=== PATIENT | female | born 1925 | race Caucasian/White ===

== ENCOUNTER 2016-11-04 17:51 | Inpatient (IN) | payer MEDICARE, MEDICAID ==
[~2016-11-04] VITALS: Ht 157.5 cm; Wt 75.5 kg
[~2016-11-04 17:51] MED LIST: ALBU2.5V4 INHALATION; ALBU8.5H2 IH; AMLO5TAB2 PO; ATOR20TA65 PO; ATRINH INH; HYDR25TA4 PO; INSLIS SUBQ; INSU100I13 SUBQ; LISI40TA PO; METF500T7 PO; MIRT15TA6 PO; OMEP20CA11 PO; TAMS0.4C98 PO; TRAM50TA2 PO; WARF3TAB7 PO; WARF4TAB6 PO
[2016-11-04 17:53] VITALS: BP 139/76; PULSE 95; RESP 20; O2SAT 95
--- NOTE | 2016-11-04 18:09 | ED.REPORT ---
HPI-Dyspnea / Wheezing Date of Service Nov 04, 2016 ED Provider: Kim Lorenzana MD 89 y/o female on Warfarin with a hx of [place], hypertension, diabetes, pneumonia, hyperlipidemia, TIA and multiple other medical concerns presents to the ED complaining of SOB, onset two to three days ago. Associated symptoms include cough, wheezing, back pain and chest pain, though she is not experiencing chest pain in ED. She denies fever, chills and lower extremity edema. The pt is on inhalers at baseline, but these treatments have not been helping in the last two days. She has been on Macrobid for three days for a UTI, but the pt's family does not believe that these antibiotics are helping. Nursing Notes Stated Complaint: WEAK,COUGHING AND WHEEZING Chief Complaint: Respiratory Distress Nursing Notes Reviewed: Yes Allergies: Coded Allergies: No Known Allergies (Verified Allergy, Unknown, 07/17/16) Scheduled Atorvastatin Calcium (Atorvastatin Calcium) 20 Mg Tablet 20 MG PO HS Budesonide/Formoterol 160-4.5 mcg Inh (Symbicort 160-4.5 mcg Inh) 120 Puff Inhaler 1 PUFF INHALATION BID Hydrochlorothiazide (Hydrochlorothiazide) 25 Mg Tablet 25 MG PO QAM Insulin Human Lispro (HumaLOG U100 Insulin Vial) 100 Unit/Ml Unit 1-12 UNIT SUBQ TIDWM use per sliding scale Lisinopril (Lisinopril) 40 Mg Tablet 40 MG PO QAM Metformin ER (Metformin ER) 500 Mg Tablet 500 MG PO DAILYWD Mirtazapine (Mirtazapine) 15 Mg Tablet 7.5 MG PO HS Nitrofurantoin Monohyd/M-Cryst (MacroBid) 100 Mg Capsule 100 MG PO BID Omeprazole (Omeprazole) 20 Mg Capsule.dr 20 MG PO QAM Tamsulosin ER (Tamsulosin ER) 0.4 Mg Cap.er.24h 0.4 MG PO HS Tramadol (Tramadol) 50 Mg Tablet 50 MG PO QAM Warfarin Sodium (Warfarin Sodium) 3 Mg Tablet 3 MG PO /// 4 MG FRI/FRI/FRI, 3 MG ALL OTHER DAYS Warfarin Sodium (Warfarin Sodium) 4 Mg Tablet 4 MG PO FRI/FRI/FRI 4 MG MON/FRI/FRI, 3 MG ALL OTHER DAYS Scheduled PRN Albuterol HFA (Proair HFA) 8.5 Gm Hfa.aer.ad 2 PUFFS IH Q4 PRN PRN For Shortness of Breath Albuterol Neb Soln (Albuterol Neb Soln) 2.5 Mg/3 Ml Vial.neb 2.5 MG INHALATION Q4H PRN PRN For Shortness of Breath Ipratropium [place] (Atrovent HFA) 200 Puff/12.9 Gm Inhaler 2 PUFF INH QID PRN PRN For Wheezing General Time Seen by MD: 18:05 Chief Complaint Shortness of breath Hx Obtained From: Patient, Other family... Sudden in Onset?: No Onset Occurred: 3 days ago Symptom Duration: Since onset Recent Healthcare: Recent doctor visit, Recent hospitalization Similar Sx Previous: Yes Past Medical History Past Medical History Notes: PCP: MIKHAIL Sharma Code status 11/04/2016: full code Past Medical History Admit for cardiac arrest due to pulmonary emboli February 2016, discharged on warfarin h/o Pneumonia (3x with hospitalization in 2014) COPD asthma Hypertension Diabetes mellitus Asthma (severe) CKD, stage 2 Hyperlipidemia TIA Past Surgical History Patient has midline abdominal scar, family debate whether or not this is cholecystectomy, appendectomy or some other procedure Reports: Cataract surgery, Cholecystectomy Smoking History Never Smoker 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 Other Social History: Good social support, Local resident Ambulatory Status Independent Review of Systems Review of Systems Note: denies lower extremity edema Constitutional: Denies: Chills, Fever Respiratory: Reports: Non-productive cough, Shortness of breath, Wheezing Cardiovascular: Reports: Chest pain Musculoskeletal: Reports: Back pain, Denies: Extremity swelling Complete sys rev & neg: except as marked. Physical Exam Initial Vital Signs Vital Signs (First) Date Time Temp Pulse Resp B/P Pulse Ox O2 Delivery O2 Flow Rate FiO2 11/04/16 17:53 36.8 95 20 139/76 95 Room Air Initial VS: Reviewed General/Constitutional: Awake, Alert Neck: Atraumatic, Supple, Full range of motion Respiratory / Chest: Atraumatic, Breath sounds = bilat Decreased diffuse rhonchi with expiratory wheezes. Cardiovascular: Heart rate NL, Regular rhythm, Heart sounds NL ENT: Atraumatic, Airway patent, Mucous membranes moist Abdomen: Atraumatic, Soft, Non-tender Back: Atraumatic, Full range of motion Lower Extremity / Pelvis / MS: Atraumatic, Full range of motion, No edema Skin: Atraumatic, Color NL, No rash, Warm, Dry Neurologic: Oriented X3, Speech NL, No motor deficits, No sensory deficits Head / Eyes: Atraumatic, Normocephalic, PERRL, EOMI Upper Extremity / MS: Atraumatic, Full range of motion Psychiatric: Affect NL, Mood NL Interpretation & Diagnostics Lab Results Interpretation Result Diagram: 11/04/16 1845 11/04/16 1845 Test 11/04/16 18:45 11/04/16 19:28 White Blood Count 10.7th/mm3 (3.8-10.1) Red Blood Count 3.49mil/mm3 (3.90-5.20) Hemoglobin 10.0g/dL (12.0-15.6) Hematocrit 31.2% (35.0-46.0) Mean Corpuscular Volume 89.4fL (81-100) Mean Corpuscular Hemoglobin 28.7pg (27.0-35.0) Mean Corpuscular Hemoglobin Concent 32.1% (32.0-37.0) Red Cell Distribution Width 13.4% (12.3-15.4) Platelet Count 233bil/L (150-400) Neutrophils (%) (Auto) 59.3% (40-74) Lymphocytes (%) (Auto) 31.2% (14-46) Monocytes (%) (Auto) 8.1% (4-12) Eosinophils (%) (Auto) 0.9% (0-5) Basophils (%) (Auto) 0.3% (0-3) Prothrombin Time 36.8sec (8.1-12.5) Prothromb Time International Ratio 3.36ratio Activated Partial Thromboplast Time 44.0sec (22.8-33.0) Sodium Level 129mEq/L (134-144) Potassium Level 3.9mEq/L (3.5-5.2) Chloride Level 91mEq/L (97-108) Carbon Dioxide Level 22mmol/L (18-29) Blood Urea Nitrogen 31mg/dL (8-27) Creatinine 1.41mg/dL (0.57-1.00) Estimat Glomerular Filtration Rate 50mL/min (>59) Glucose Level 189mg/dL (60-99) Calcium Level 8.9mg/dL (8.5-10.1) Magnesium Level 1.4mg/dL (1.6-2.6) Total Bilirubin 0.3mg/dL (0.0-1.2) Aspartate Amino Transf (AST/SGOT) 12U/L (0-50) Alanine Aminotransferase (ALT/SGPT) 10U/L (0-32) Alkaline Phosphatase 90U/L (25-165) Troponin T < 0.010ug/L (0.0-0.011) Pro-B-Type Natriuretic Peptide 790.7pg/mL (0-738) Total Protein 7.4g/dL (6.4-8.4) Albumin 3.6g/dL (3.4-5.0) Procalcitonin 0.09ng/mL (0.00-0.08) Hold Diaz Top Tube Received (Received) Urine Color Yellow (YELLOW) Urine Appearance Clear (CLEAR,HAZY) Urine pH 5.5 (5.0-8.0) Urine Specific [place] 1.025 (1.003-1.035) Urine Protein Tracemg/dL (NEG,TRACE) Urine Glucose (UA) Negativemg/dL (NEGATIVE) Urine Ketones Negativemg/dL (NEGATIVE) Urine Occult Blood Small (NEGATIVE) Urine Nitrite Negative (NEGATIVE) Urine Bilirubin Negative (NEGATIVE) Urine Urobilinogen Normalmg/dL (NORMAL) Urine Leukocyte Esterase Moderate (NEGATIVE) Urine RBC 0-2/hpf (0-2) Urine WBC 0-5/hpf (0-5) Urine Epithelial Cells Few/hpf (NONE-MOD) Urine Crystals None seen (NONE SEEN) Urine Bacteria Few/hpf (NONE-FEW) Urine Hyaline Casts None/lpf (NONE) Urine Granular Casts None seen (NONE SEEN) Urine Waxy Casts None seen (NONE SEEN) Urine Red Blood Cell Casts None seen (NONE SEEN) Urine White Blood Cell Casts None seen (NONE SEEN) Urine Mucus None seen (None Seen) Urine Trichomonas None seen (NONE SEEN) Urine Yeast None (NONE SEEN) Urinalysis Comment None Urine Culture Reflexed Indicated ECG Interpretation ECG Interpretation: Normal sinus. Rate [address] elevation. T wave inversion aVR. Q wave in V3. Unchanged from prior (dated 07/17/16) Time: 18:24 Interpreted by: ED physician X-Ray Chest Interpretation Chest Xray Interpretation: IMPRESSION: 1. Increased patchy left basilar opacities consistent with atelectasis or consolidation/pneumonia. 2. Moderate size hiatal hernia. Dictated by: Marlon Del Castillo M.D. on 11/04/2016 at 19:37 Approved by: Marlon Del Castillo M.D. on 11/04/2016 at 19:38 View: Portable, 1 view Interpretation / Wet Read by: Interpret - Radiologist CT Chest Interpretation Re-Eval/Medical Decision Med Decision/Clinical Course 89-year-old female with extensive past medical history brought in by her family for shortness of breath. Differential diagnosis includes but is not limited to pneumonia versus COPD exacerbation versus electrolyte abnormality versus urinary tract infection. Patient does have evidence of pneumonia on chest x- ray. She has mild leukocytosis, along with baseline anemia on CBC. CMP shows mild hyponatremia, also baseline. Her creatinine is elevated at 1.4 compared to her baseline of 0.7. Her pro calcitonin is elevated. Additionally, she was wheezing and decreased on arrival which improved dramatically after 2 breathing treatments. She has been accepted by the hospitalist Dr. Scott for fluid hydration, Rocephin, azithromycin for pneumonia, and continued neb treatments for COPD exacerbation. She and family are aware and amenable to admission. I discussed her CODE STATUS, however, her family continues to have her remain full code, but they will discuss whether or not to make her DO NOT RESUSCITATE per her wishes. Source of Hx: Old records Re-Evaluation/Progress #1: Time of Eval: 19:04 Patient Status: Condition improved Re-Evaluation/Progress Note: Pt is moving air better following initial breathing treatment, but still has diffuse expiratory wheeze. Albuterol is ordered. Re-Evaluation/Progress #2: Time of Eval: 19:44 Patient Status: Condition improved Re-Evaluation/Progress Note: Pt rechecked, who is stable. Diagnosis and the need for admission are discussed. The pt understands and agrees with the plan. All questions are addressed at this time. Consultation : Referral / Consult Name: Penny Scott DO Consulted With: Hospitalist Call Returned at: 19:51 Sales Service Professional: Agrees with eval, Agrees with plan, Accepts admit Note: Spoke with Dr. Scott, hospitalist, regarding pt's case. Dr. Scott agrees with the evaluation and agrees to admit the pt. Counseled Regarding: Diagnosis, Lab results, Need for admission Discharge & Departure Impression: Primary Impression: Acute kidney injury Additional Impression: Pneumonia Pneumonia type: due to unspecified organism Laterality: left Lung location : lower lobe of lung Qualified Code: J18.1 - Lobar pneumonia, unspecified organism Disposition: ADMITTED TO HOSPITAL Discharge Condition All VS Reviewed: Yes Condition: Stable Referrals: Tri Sharma (PCP) Scribe Attestation Portion of this note were transcribed by Larry Menjivar and Temitope Mcintyre. I, Dr. Lorenzana, personally performed the history,physical exam and medical decision- making; I reviewed and confirmed the accuracy of the information in transcribed note. Signed by Yong Gonzalez. 11/04/2016 and 2017. copies to: Tri Sharma Rebecca A MD Nov 04, 2016 18:09 Larry Menjivar Nov 04, 2016 18:16 TEMITOPE MCINTYRE Nov 04, 2016 19:04
[2016-11-04] MEDS ORDERED: Albuterol-Ipratropium 3 mL Inhalation Solution NEB ONE (18:15)
[2016-11-04 18:27] VITALS: PULSE 90; RESP 18; O2SAT 96
[2016-11-04 18:58] LABS: BASOPHILS % (AUTO) 0.3 % (0-3); EOSINOPHILS % (AUTO) 0.9 % (0-5); MONOCYTES % (AUTO) 8.1 % (4-12); Mean Corpuscular Hemoglobin 28.7 pg (27.0-35.0); Mean Corpuscular Volume 89.4 fL (81-100); NEUTROPHILS % (AUTO) 59.3 % (40-74); Platelet Count 233 bil/L (150-400)
[2016-11-04] MEDS ORDERED: Albuterol 2.5 mg/3 mL Inhalation Solution NEB ONE (19:05)
[2016-11-04 19:16] LABS: INR 3.36 ratio
[2016-11-04 19:28] VITALS: PULSE 87; RESP 18; O2SAT 98
[2016-11-04 19:32] LABS: Magnesium 1.4 mg/dL (1.6-2.6); TROPONIN T < 0.010 ug/L (0.0-0.011)
[2016-11-04 19:39] LABS: APPEARANCE,URINE CLEAR (CLEAR,HAZY); COLOR,URINE YELLOW (YELLOW)
[2016-11-04 19:40] LABS: OCCULT BLOOD,URINE SMALL (NEGATIVE); PH,URINE 5.5 (5.0-8.0); UROBILINOGEN,URINE NORMAL (NORMAL)
--- NOTE | 2016-11-04 19:40 | DRSVH ---
PROCEDURE: X-RAY CHEST ONE VIEW, PORTABLE ([id number]) INDICATIONS: chest pain TECHNIQUE: One view of the chest was acquired. COMPARISON: [facility], CR, XR CHEST 2VW, 08/01/2016, 12:18. FINDINGS: Surgical changes and devices: None. Lungs and pleura: No pleural effusions or pneumothorax. There increased patchy left basilar opaciti es. Mediastinum: There is a moderate-sized hiatal hernia. Heart size is normal. Bones and chest wall: No suspicious bony lesions. Overlying soft tissues appear unremarkable. IMPRESSION: 1. Increased patchy left basilar opacities consistent with atelectasis or consolidation/pneumonia. 2. Moderate size hiatal hernia. Dictated by: Marlon Del Castillo M.D. on 11/04/2016 at 19:37 Approved by: Marlon Del Castillo M.D. on 11/04/2016 at 19:38
[2016-11-04] MEDS ORDERED: cefTRIAXone Inj 1,000 MG in Dextrose 5% Minibag Plus 50 ML IV ONE (19:45)
[2016-11-04] MEDS ORDERED: 0.9% Sodium Chloride 250 ML IV ONE (19:45)
--- NOTE | 2016-11-04 20:11 | PCM.HPMED ---
Subjective Date of Service Nov 04, 2016 Primary Provider: Admitting Physician: Penny Scott DO Primary Care Physician: Tri Sharma Attending Physician: Penny Scott DO Admit Status: From the Emergency Department Chief Complaint: Shortness of breath History of Present Illness: 89 y/o Yi-speaking female with a history of asthma, DM type 2, hypertension , recurrent UTIs, and [facility] admission in February of 2016 following a cardiac arrest secondary to PE who presented today with the complaint of worsening shortness of breath for the past 2 days. Associated symptoms include subjective fevers, chills, diaphoresis, nonproductive cough, wheezing, fatigue, generalized weakness, headache, mild nausea, and back pain. Patient is accompanied by her daughter and caregiver, Dinorah who is Slovak speaking and able to provide additional history. Per the patient and her daughter she endorses recurrent UTIs and recently started on Macrobid (11/01/16) by her PCP for active UTI. Additionally, daughter reports asthma has been well-controlled on current therapy. Patient denies ever being a smoker and notes a long- standing history of asthma. No other family members or caregivers have been sick and both patient and her daughter deny sick contacts. Today patient endorses ongoing dysuria and denies hematuria or increased urinary frequency, although this is somewhat difficult to asses as the patient is incontinent of urine. Per chart review, patient was seen by Urology in July of this year for bladder retention and passed a voiding trial. Recommendations at that time were continued followup with PCP and possible cystoscopy in the future. Patient denies chest pain, congestion, hemoptysis, abdominal pain, vomiting, diarrhea or lower extremity swelling. Of note the patient's daughter notes an increase in the patient's left hand tremor. She states that she brought this up with the patient's PCP last week but states that it was not addressed. In the ED, vitals: temp36.8, BP 139/76, pulse 95, RR 20, 95% on room air. Labs : wbc 10.7, H/H 10.0/31.2, sodium 129, potassium 3.9, chloride 91, bicarb 22, BUN 31, creatinine 1.41 (Baseline creatinine appears to be 0.8-1.0), serum glucose 189, troponnin negative x1, pro BNP 790.7 (proBNP on 03/02/16 was 795.6). PT/INR 36.8/3.36. UA with moderate leukocytes esterase, negative nitrite, few bacteria and occult blood. ECG showing NSR with rate 89, no ST elevation and unchanged from prior (07/17/16). Chest xray showing an increase in left basilar opacities consistent with atelectasis or consolidation/pneumonia, moderate sized hiatal hernia. She received- 500mg of oral azithromycin, 1g IV ceftriaxone, 324mg oral aspirin , and nebulizer treatments. Review of Systems: A comprehensive review of systems was conducted with the patient and found to be negative except as above in the History of Present Illness. Allergies Coded Allergies: No Known Allergies (Verified Allergy, Unknown, 07/17/16) Home Medications Mirtazapine 7.5 MG PO HS Atorvastatin Calcium 20 MG PO HS Metformin ER 500 MG PO QPM Lisinopril 20 MG PO QAM Omeprazole 20 MG PO QAM Hydrochlorothiazide 25 MG PO QAM Tamsulosin 0.4 MG PO DAILY Warfarin Sodium (Warfarin Sodium) 3 Mg Tablet 3 MG PO ,,,, Warfarin Sodium (Warfarin Sodium) 4 Mg Tablet 4 MG PO ,Fri Tramadol 50 MG PO DAILY PRN For Pain Albuterol HFA 8.5 Gm; 2 PUFFS IH Q4 PRN For Shortness of Breath Albuterol Neb Soln 2.5 MG INHALATION Q4H PRN For Shortness of Breath Ipratropium [place] 12.9 Gm Inhaler 2 PUFF INH QID PROAIR AND ATROVENT Insulin Glargine 5 UNITS SUBQ HS Insulin Human Lispro 100 Unit/Ml Unit UNIT SUBQ BID use per sliding scale PMH Admit for cardiac arrest due to pulmonary emboli February 2016, discharged on warfarin h/o Pneumonia (3x with hospitalization in 2014) COPD/asthma Hypertension Diabetes mellitus type 2, insulin using CKD, stage 2 Hyperlipidemia TIA Surgical History Cholecystectomy, appendectomy Cataract surgery Cholecystectomy (patient not sure but there is a midline abdominal scar) Family History Diabetes, brother of heart attack, Social History Hx Alcohol Use: No Hx Substance Use: No Hx Tobacco Use: No Smoking Status: Never Smoker Living Arrangement: with Family Exam Vital Signs Vital Sign - Last Date Time Temp Pulse Resp B/P Pulse Ox O2 Delivery O2 Flow Rate FiO2 11/04/16 19:28 87 18 98 Room Air 11/04/16 17:53 36.8 139/76 Exam Gen: Age-appropriate, elderly female lying in bed, appears comfortable and in no acute distress, breathing comfortably on room air. HEENT: NCAT, PERRLA, moist conjunctivae, and no lid lag. Oropharynx appears nml with moist mucosa. Neck: Supple, nontender, no JVD, bruits or lymphadenopathy. Cardiac: RRR with no murmurs, rubs, or gallops appreciated Lungs: Normal respiratory effort, mild diffuse wheezing, crackles noted at the left base Abd: Bowel tones present. Soft, nontender, mildly distended with no rebound or guarding. Ext: Warm, well perfused, no cyanosis or edema. Skin: Normal temperature, turgor, and texture; no rashes or ulcerations. Neurological: CN II-XII grossly intact, no focal motor or sensory deficit.Essential tremor of left hand. Psych: Normal mood and affect. Alert and oriented to person, place, and time. Lab and Diagnostics Labs Laboratory Tests Test 11/04/16 18:45 11/04/16 19:28 White Blood Count 10.7th/mm3 (3.8-10.1) Red Blood Count 3.49mil/mm3 (3.90-5.20) Hemoglobin 10.0g/dL (12.0-15.6) Hematocrit 31.2% (35.0-46.0) Mean Corpuscular Volume 89.4fL (81-100) Mean Corpuscular Hemoglobin 28.7pg (27.0-35.0) Mean Corpuscular Hemoglobin Concent 32.1% (32.0-37.0) Red Cell Distribution Width 13.4% (12.3-15.4) Platelet Count 233bil/L (150-400) Neutrophils (%) (Auto) 59.3% (40-74) Lymphocytes (%) (Auto) 31.2% (14-46) Monocytes (%) (Auto) 8.1% (4-12) Eosinophils (%) (Auto) 0.9% (0-5) Basophils (%) (Auto) 0.3% (0-3) Prothrombin Time 36.8sec (8.1-12.5) Prothromb Time International Ratio 3.36ratio Activated Partial Thromboplast Time 44.0sec (22.8-33.0) Sodium Level 129mEq/L (134-144) Potassium Level 3.9mEq/L (3.5-5.2) Chloride Level 91mEq/L (97-108) Carbon Dioxide Level 22mmol/L (18-29) Blood Urea Nitrogen 31mg/dL (8-27) Creatinine 1.41mg/dL (0.57-1.00) Estimat Glomerular Filtration Rate 50mL/min (>59) Glucose Level 189mg/dL (60-99) Calcium Level 8.9mg/dL (8.5-10.1) Magnesium Level 1.4mg/dL (1.6-2.6) Total Bilirubin 0.3mg/dL (0.0-1.2) Aspartate Amino Transf (AST/SGOT) 12U/L (0-50) Alanine Aminotransferase (ALT/SGPT) 10U/L (0-32) Alkaline Phosphatase 90U/L (25-165) Troponin T < 0.010ug/L (0.0-0.011) Pro-B-Type Natriuretic Peptide 790.7pg/mL (0-738) Total Protein 7.4g/dL (6.4-8.4) Albumin 3.6g/dL (3.4-5.0) Procalcitonin 0.09ng/mL (0.00-0.08) Hold Diaz Top Tube Received (Received) Urine Color Yellow (YELLOW) Urine Appearance Clear (CLEAR,HAZY) Urine pH 5.5 (5.0-8.0) Urine Specific [place] 1.025 (1.003-1.035) Urine Protein Tracemg/dL (NEG,TRACE) Urine Glucose (UA) Negativemg/dL (NEGATIVE) Urine Ketones Negativemg/dL (NEGATIVE) Urine Occult Blood Small (NEGATIVE) Urine Nitrite Negative (NEGATIVE) Urine Bilirubin Negative (NEGATIVE) Urine Urobilinogen Normalmg/dL (NORMAL) Urine Leukocyte Esterase Moderate (NEGATIVE) Urine RBC 0-2/hpf (0-2) Urine WBC 0-5/hpf (0-5) Urine Epithelial Cells Few/hpf (NONE-MOD) Urine Crystals None seen (NONE SEEN) Urine Bacteria Few/hpf (NONE-FEW) Urine Hyaline Casts None/lpf (NONE) Urine Granular Casts None seen (NONE SEEN) Urine Waxy Casts None seen (NONE SEEN) Urine Red Blood Cell Casts None seen (NONE SEEN) Urine White Blood Cell Casts None seen (NONE SEEN) Urine Mucus None seen (None Seen) Urine Trichomonas None seen (NONE SEEN) Urine Yeast None (NONE SEEN) Urinalysis Comment None Urine Culture Reflexed Indicated Microbiology 11/04/16 Urine Culture, Received Pending Result Diagram: 11/04/16 1845 11/04/16 1845 X-Rays, CTs and MRIs X-RAY CHEST ONE VIEW, PORTABLE IMPRESSION: 1. Increased patchy left basilar opacities consistent with atelectasis or consolidation/pneumonia. 2. Moderate size hiatal hernia. Dictated by: Marlon Del Castillo M.D. on 11/04/2016 at 19:37 Approved by: Marlon Del Castillo M.D. on 11/04/2016 at 19:38 Cardiac Echo Impressions Echocardiogram Report 03/17/2016 Interpretation Summary Left ventricular systolic function is normal with the ejection fraction estimated to be 65-70%.without focal wall motion abnormalities although there is a flattened septum with paradoxical septal motion consistent with right ventricular overload. This is new compared to the previous study. The E/A ratio is reversed, suggesting impaired early relaxation of the left ventricle or a reduced preload state. The right ventricle is moderately dilated and right ventricular systolic function is severely reduced which is new compared to the previous study. The right ventricular systolic pressure is estimated to be at least 38 mmHg assuming a right atrial pressure of 8 mm Hg and is significantly higher compared to the previous study. The left atrium is small while the right atrium grossly appears normal in size. The right atrium has significantly increased in size since the prior echo exam. There is moderate to severe tricuspid regurgitation which is markedly worse compared to the previous study. There is no other significant valvular heart disease. Assessment & Plan 89 y/o Yi-speaking female with a history cardiac arrest in the past, PE on warfarin, TIA, hypertension, asthma and DM type 2 who presented to the ED accompanied by her daughter c/o nonproductive cough and shortness of breath for the past 2days. Admitted for further management and evaluation of acute kidney injury, UTI and possible pneumonia vs asthma exacerbation. 1. Dyspnea, poa. Active -Likely secondary to CAP and possible asthma exacerbation. -Of note, patient admitted to [facility] in Feb 2016 s/p cardiac arrest secondary to pulmonary embolism. Discharged on warfarin. INR 3.36. -Hemondynamically stable without known hx of CHF, proBNP 790.7 elevated (795.6 on 03/02/16). last ECHO (03/17/16) evidence of pulmonary HTN, right ventricular dilation and decreased systolic function. -ECHO ordered -ECG showing NSR w/rate [address] changes, unchanged from prior () -CXR with increased left basilar opacities concerning for pneumonia. -troponnin negative x1 -blood cultures/urine antigen/influenza screen, pending -procalcitonin, pending -received 500mg oral azithromycin, 2g IV ceftriaxone in the ED -continue antibiotics, IV azithromycin/ceftriaxone -Duonebs q4h, albuterol q2h prn 2. Possible community acquired pneumonia, poa. Active -Pt c/o subjective fevers/chills, non-productive cough, fatigue, and increased dyspnea -workup, antibiotics and nebulizers, as above -IVFs normal saline at 100mls/hr 3. Possible asthma exacerbation, poa. Ongoing - Not on home O2, oxygen sats 95-98% on room air - workup, antibiotics and nebulizers, as above - Consider addition of oral prednisone, for worsening symptoms 4. Supratherapeutic INR, poa. Ongoing -PT/INR 36.8, 3.36; no s/s of active bleeding, no need for immediate reversal. -Warfarin per pharmacy -repeat PT/INR in the morning 5. Acute kidney injury, poa. Active. - Cr 1.41, baseline creatinine appears to be 0.8-1.0 - Most likely d/t dehydration - IVF NS @ 100 mls/hr - hold lisinopril - BMP in the morning 6. UTI, acute on chronic, poa. Ongoing -h/o recent UTI treated w/ Macrobid (day 3) on day of admission. -Patient endorses ongoing dysuria. -Received 2g IV ceftriaxone 1 g in ED -Continue ceftriaxone 2g IV q/24h - IVF NS @ 100 mls/hr. - urine culture pending - antibiotics as above 7. Hyponatremia, appears chronic, poa. Ongoing - Likely secondary to decreased fluid intake as patient appears euvolemic and she is chronically low-normal during other admissions. - IVFs as above - encourage PO intake 8. Normocytic anemia, chronic. - Likely secondary to chronic disease, H/H 10.0/31.2 - CBC in morning 9. Diabetes mellitus type II, chronic, poa. Ongoing - serum glucose 189, HbA1c pending -low-dose correctional scale insulin, ordered -held Metformin -heart healthy/carbohydrate consistent diet. 10. Hypertension (chronic), poa. Ongoing - held lisinopril due to ULISES - held HCTZ for low BP 11. Hyperlipidemia (chronic), poa. Ongoing - Continue home statin 12. Chronic pain, poa. Ongoing -continue home tramadol CODE STATUS: Discussed with patient and her daughter, confirm patient wishes to be FULL CODE. FEN: heart healthy/consistent carb IVFs: NS at 100mls/hr DVT Prophylaxis: pt anticoagulated on warfarin. PRN: Acetaminophen-fever/headache/mild/moderate pain Antiemetics, as needed Bowel regimen, as needed. Disposition: Patient admitted under inpatient status with expected length of stay > 2 midnights for severity of present symptoms, complexities of treatment plan and risk for adverse event Pain Evaluation: Adequate Pain Control Resuscitation Status: CPR: Attempt Resuscitation Attending Statement The patient was seen and examined together with house staff on 11/05/2016 and I agree with the history, exam and plan as outlined in the note above. Michelle Henning DO Nov 04, 2016 20:11 Penny Scott DO Nov 05, 2016 03:33 -pt seems to be experiencing reduced physical and cognitive abilities. - She may benefit from geriatric interventions even palliative care consultation. Pain Evaluation: Adequate Pain Control Resuscitation Status: CPR: Attempt Resuscitation Michelle Henning DO Nov 04, 2016 20:11 admitted to [facility] on 03/16/16 after cardiac arrest s/p resuscitation in the field. EKG and echocardiogram showing results consistent with pulmonary emboli and cardiac strain. -discharged on coumadin - Echo showing pulmonary hypertension with right ventricular dilation and decreased systolic function. - CTA was ordered but unobtainable due to patient's elevated creatinine. VQ scan was done with results showing high probability bilateral pulmonary emboli Pain Evaluation: Adequate Pain Control Resuscitation Status: CPR: Attempt Resuscitation Michelle Henning DO Nov 04, 2016 20:11 Trended down. She will need a cardiac evaluation when pulmonary emboli is no longer a contributing factor. -continue Coumadin for at least 3 months, Lovenox used for bridging. INR therapeutic -needs age appropriate cancer screening #Acute kidney injury, present on admission. Resolved, she is at her baseline - Likely secondary to hypoperfusion from cardiac arrest. - Baseline creatinine 0.91 on 03/06/2016. - Restarted lisinopril which was initially held. # Acute leukocytosis, present on admission. Resolved - Likely secondary to stress response versus less likely urinary tract infection. - Continue to monitor closely. - Urine culture negative, culture only showing mixed jason Chronic problems: #Hyponatremia, chronic. - Likely secondary to decreased fluid intake as patient appears euvolemic and she is chronically low-normal during other admissions. - Continue to encourage by mouth fluid intake. #Normocytic anemia, chronic. - Likely secondary to chronic disease. - Monitor hemoglobin and hematocrit daily. #Asthma, chronic - Continue albuterol 2 puffs every 4 hours as needed for shortness of breath. - Continue Symbicort and Atrovent 2 puffs twice a day. #Diabetes mellitus type II, insulin using, chronic. - Last hemoglobin A1c was 8.4% 01/2016. - Continue Lantus 10units daily at bedtime. - low-dose correctional scale insulin. - Metformin was held initially, restarted . - heart healthy/carbohydrate consistent diet. #Hypertension, chronic. - Continue amlodipine 5 mg daily at bedtime and hydrochlorothiazide 25 mg daily. - Lisinopril initially held due to renal failure, restart today.. #Hyperlipidemia, chronic. - Continue home dosing of rosuvastatin 10 mg daily at bedtime. Pain Evaluation: Adequate Pain Control Resuscitation Status: CPR: Attempt Resuscitation Michelle Henning DO Nov 04, 2016 20:11
[2016-11-04 20:18] VITALS: BP 153/55; PULSE 92; RESP 18; O2SAT 98
[2016-11-04] MEDS ORDERED: NITR100 PO (20:24)
[2016-11-04] MEDS ORDERED: SYMINH INHALATION (20:24)
[2016-11-04] MEDS ORDERED: TAMS0.4C29 PO (20:39)
[2016-11-04 20:55] VITALS: BP 153/55; PULSE 92; RESP 18; O2SAT 98
[2016-11-04 21:31] VITALS: BP 128/73; PULSE 89; RESP 18; O2SAT 95
[2016-11-04] MEDS ORDERED: Albuterol 1.25 mg/3 mL Inhalation Solution NEB PRN (22:20)
[2016-11-04] MEDS ORDERED: Alum-Mag Hydrox-Simeth 30 mL Suspension PO PRN (22:20)
[2016-11-04] MEDS ORDERED: Glucose 40% Oral Gel 15 Gm Tube PO PRN (22:30)
[2016-11-05] VITALS (12 sets, daily range): BP systolic 127–178; BP diastolic 70–92; PULSE 76–86; RESP 16–21; O2SAT 94–100
[2016-11-05] MEDS: 0.9% Sodium Chloride 1,000 ML IV SCH ×3 (00:04→21:52)
--- NOTE | 2016-11-05 00:19 | PCM.PHAPRO ---
Progress Date of Service: Nov 05, 2016 Shortness of breath Warfarin Management per Pharmacy: Indication: Pulmonary Embolism Goal INR: 2-3 Home Dose: Warfarin 4 mg Mon/Wed/Fri and 3 mg all other days Labs: Hgb/Hct: 10.0/31.2 Plt: 233 INR: 3.36 Drug Interactions: Rocephin/Azithromycin - mild interaction Drug-Disease Intxn: Acute Illness - pneumonia vs UTI Bleeding: None Recommendation: INR is slightly supratherapeutic, hold warfarin tonight, daily INRs ordered Pharmacy to continue to monitor and adjust as needed. Thank You Brittni Tate, Pharm D. Brittni Tate Nov 05, 2016 00:19
--- NOTE | 2016-11-05 05:39 | NUR ---
Admit Transferred to unit at 2114, two person slide from [facility] to bed. Patient Slovak speaking daughter Estrella in room able to translate what patient could not understand. Denied need for [employer] stick. Patient c/o mild headache, however denied need for pain medication. Able to make needs known, requested bed win this am.
[2016-11-05 06:13] LABS: BASOPHILS % (AUTO) 0.3 % (0-3); EOSINOPHILS % (AUTO) 2.7 % (0-5); MONOCYTES % (AUTO) 9.7 % (4-12); Mean Corpuscular Hemoglobin 28.9 pg (27.0-35.0); Mean Corpuscular Volume 89.2 fL (81-100); NEUTROPHILS % (AUTO) 47.8 % (40-74); Platelet Count 206 bil/L (150-400)
[2016-11-05 06:17] LABS: INR 4.26 ratio
[2016-11-05 06:27] LABS: Magnesium 1.4 mg/dL (1.6-2.6); Phosphorus 2.9 mg/dL (2.5-4.9)
[2016-11-05] MEDS: Albuterol-Ipratropium 3 mL Inhalation Solution NEB SCH ×4 (07:29→19:39)
[2016-11-05] MEDS: Insulin LISPRO 300 Unit/3 mL Inj SUBQ SCH ×4 (08:00→21:51)
--- NOTE | 2016-11-05 10:22 | DRSVH ---
PROCEDURE: X-RAY CHEST ONE VIEW, PORTABLE ([id number]) INDICATIONS: dyspnea TECHNIQUE: One view of the chest was acquired. COMPARISON: [facility], CR, XR CHEST 1VW (PORTABLE), 11/04/2016, 18:21. FINDINGS: Surgical changes and devices: None. Lungs and pleura: No pleural effusions or pneumothorax. Lungs are clear. Lung volumes are low. Mediastinum: Mediastinal contours appear normal. Heart size is normal. Bones and chest wall: No suspicious bony lesions. Overlying soft tissues appear unremarkable. IMPRESSION: Expiratory chest demonstrating no definite acute cardiopulmonary process. Dictated by: Louie Abreu RRA Interpreted: Simran Hamilton MD on 11/05/2016 at 10:21 Transcribed by: MICHAELLE on 11/05/2016 at 10:21 Approved by: Simran Hamilton M.D. on 11/05/2016 at 17:09
--- NOTE | 2016-11-05 10:32 | PCM.PHAPRO ---
Progress Warfarin Management per Pharmacy: Indication: Pulmonary Embolism Goal INR: 2-3 Home Dose: Warfarin 4 mg Mon/Wed/Fri and 3 mg all other days Labs: Hgb/Hct: 9.4/29 Plt: 206 Coagulation Trends: -Nov 05-Oct 3.36 4.26 0.9 0 MG HOLD Drug Interactions: Rocephin/Azithromycin Drug-Disease Intxn: Acute Illness - pneumonia vs UTI Bleeding: None Plan: will continue to hold dose this evening due to a supratherapeutic inr of 4.26 Shayla Milan [facility] Nov 05, 2016 10:32
--- NOTE | 2016-11-05 10:36 | DRSVH ---
PROCEDURE: X-RAY CHEST ONE VIEW, PORTABLE ([id number]) INDICATIONS: SOB TECHNIQUE: One view of the chest was acquired. COMPARISON: [facility], CR, XR CHEST 1VW (PORTABLE), 11/04/2016, 22:17. FINDINGS: Surgical changes and devices: None. Lungs and pleura: No pleural effusions or pneumothorax. Lungs are clear. Lung volumes are low. Mediastinum: Mediastinal contours appear normal. Heart size is normal. Bones and chest wall: No suspicious bony lesions. Overlying soft tissues appear unremarkable. IMPRESSION: Expiratory chest demonstrating no definite acute cardiopulmonary process. Dictated by: Louie Abreu RRA Interpreted: Simran Hamilton MD on 11/05/2016 at 10:35 Transcribed by: MICHAELLE on 11/05/2016 at 10:35 Approved by: Simran Hamilton M.D. on 11/05/2016 at 17:11
--- NOTE | 2016-11-05 10:52 | NUR ---
FAXED H&P TO [facility], ADVISED [facility]ER.
[2016-11-05] MEDS: Polyethylene Glycol (PEG) 17 Gm Powder PO PRN (12:39)
--- NOTE | 2016-11-05 14:22 | PCM.PNMED ---
Subjective Date of Service Nov 05, 2016 Subjective Pt states she is feeling better today. She states she still feels slightly short of breath at times but she feels much better overall. She denies any wheezing. No other complaints or concerns at this time. Exam Vital Signs Vital Sign - Last Date Time Temp Pulse Resp B/P Pulse Ox O2 Delivery O2 Flow Rate FiO2 11/05/16 13:45 36.4 85 16 152/73 97 Room Air Intake and Output 11/04/16 11/04/16 11/05/16 Cumulative From/Thru 15:00 23:00 07:00 11/04/16 17:53 - 11/05/16 06:47 Intake Total 250 ml 850 ml 1100 ml Output Total 150 ml 150 ml Balance 250 ml 700 ml 950 ml Intake Oral 100 ml 100 ml IV Total 250 ml 750 ml 1000 ml Output Urine Total 150 ml 150 ml Exam GENERAL: NAD, Pt laying in bed comfortably HEENT: AT/NC, PERRLA, EOMI, Mucus Membranes are moist CARDIAC: RRR; No M/R/G PULM: Faint crackles present at bilateral lung bases ABD: Soft, Nontender, Nondistended, Positive bowel sounds in all quadrants, No Hepatosplenomegaly appreciated EXT: No C/C/E; No calf tenderness bilaterally SKIN: Warm, Dry, [place], and Intact NEURO: Alert and oriented x3; Following all commands PSYCH: Normal mood and affect IVs and Medications Medications Reviewed: Medications were reviewed in detail Lab and Diagnostics Result Diagram: 11/05/16 0525 11/05/16 0525 X-Rays, CTs and MRIs X-RAY CHEST ONE VIEW, PORTABLE IMPRESSION: 1. Increased patchy left basilar opacities consistent with atelectasis or consolidation/pneumonia. 2. Moderate size hiatal hernia. Dictated by: Marlon Del Castillo M.D. on 11/04/2016 at 19:37 Approved by: Marlon Del Castillo M.D. on 11/04/2016 at 19:38 Cardiac Echo Impressions Echocardiogram Report 03/17/2016 Interpretation Summary Left ventricular systolic function is normal with the ejection fraction estimated to be 65-70%.without focal wall motion abnormalities although there is a flattened septum with paradoxical septal motion consistent with right ventricular overload. This is new compared to the previous study. The E/A ratio is reversed, suggesting impaired early relaxation of the left ventricle or a reduced preload state. The right ventricle is moderately dilated and right ventricular systolic function is severely reduced which is new compared to the previous study. The right ventricular systolic pressure is estimated to be at least 38 mmHg assuming a right atrial pressure of 8 mm Hg and is significantly higher compared to the previous study. The left atrium is small while the right atrium grossly appears normal in size. The right atrium has significantly increased in size since the prior echo exam. There is moderate to severe tricuspid regurgitation which is markedly worse compared to the previous study. There is no other significant valvular heart disease. Assessment & Plan 89 y/o Pashto-speaking female with a history cardiac arrest in the past, PE on warfarin, TIA, hypertension, asthma and DM type 2 who presented to the ED accompanied by her daughter c/o nonproductive cough and shortness of breath for the past 2days. Admitted for further management and evaluation of acute kidney injury, UTI and possible pneumonia vs asthma exacerbation. 1. Pneumonia, Community Acquired - Present on admission - Continue IV Rocephin and Azithromycin for now - Continue supplemental O2 to keep SpO2 greater than 92% - Strep Pneumoniae Ag was negative - Legionella Ag negative - Will order a Respiratory Viral PCR now - Repeat CBC with diff in AM - Breathing treatments PRN 2. Acute Kidney Injury - Improving - Continue IV Normal Saline for now - Continue to hold Lisinopril for now - Avoid nephrotoxic agents - Repeat BMP in AM 3. Urinary Tract Infection, Acute - Present on admission - This is being treated with IV Rocephin, see #1 4. Coagulopathy - INR remains supratherapeutic. - Continue to hold Warfarin for now, pharmacy managing - Repeat INR in AM 5. Asthma, Stable - Not in acute exacerbation - Continue breathing treatments PRN - Continue supplemental O2 to keep SpO2 greater than 92% 6. Essential Hypertension - Well controlled - Pts home HCTZ and Lisinopril are being held given #2 - Monitor BP closely 7. Diabetes Mellitus, Type II - Continue checking FSBS q AC and HS - Continue SSI while pt is in hospital - Continue to hold Metformin for now while pt is in hospital - Carbohydrate controlled diet 8. Hyperlipidemia - Continue statin therapy 9. Disposition - Anticipate discharge to home in the next 2 days or so Resuscitation Status: CPR: Attempt Resuscitation Addi Lopez MD Nov 05, 2016 14:22 10. Hypertension (chronic), poa. Ongoing - held lisinopril due to ULISES - held HCTZ for low BP 11. Hyperlipidemia (chronic), poa. Ongoing - Continue home statin 12. Chronic pain, poa. Ongoing -continue home tramadol CODE STATUS: Discussed with patient and her daughter, confirm patient wishes to be FULL CODE. FEN: heart healthy/consistent carb IVFs: NS at 100mls/hr DVT Prophylaxis: pt anticoagulated on warfarin. PRN: Acetaminophen-fever/headache/mild/moderate pain Antiemetics, as needed Bowel regimen, as needed. Disposition: Patient admitted under inpatient status with expected length of stay > 2 midnights for severity of present symptoms, complexities of treatment plan and risk for adverse event Resuscitation Status: CPR: Attempt Resuscitation Addi Lopez MD Nov 05, 2016 14:22
--- NOTE | 2016-11-05 19:10 | NUR ---
activity Pt frequent turns in bed for breif changes. pt incontinent of urine. pt up to [facility] max 2 assist, pt thought she was going to have a BM after taking prune juice and Miralax, pt was unable to have a BM. no complaints of pain/nausea or SOB. care continued.
[2016-11-05] MEDS: cefTRIAXone Inj 2,000 MG in Dextrose 5% Minibag Plus 50 ML IV SCH (21:52)
[2016-11-05] MEDS: Azithromycin Inj 500 MG in Dextrose 5% w/Vial Mate 250 ML IV SCH (22:22)
[2016-11-06] VITALS (11 sets, daily range): BP systolic 150–175; BP diastolic 75–95; PULSE 75–105; RESP 16–22; O2SAT 95–98
--- NOTE | 2016-11-06 01:58 | NUR ---
Patient continues to deny pain or SOB. Has remained on bedrest. Incontinent of urine. Frequent brief changes. Bruises and abrasions on buttocks, calmoseptine applied. Patient appears to be resting comfortably at this time.
[2016-11-06 06:55] LABS: INR 2.7 ratio
[2016-11-06 07:07] LABS: BASOPHILS % (AUTO) 0.2 % (0-3); MONOCYTES % (AUTO) 6.5 % (4-12); Mean Corpuscular Hemoglobin 28.8 pg (27.0-35.0); Mean Corpuscular Volume 88.1 fL (81-100); NEUTROPHILS % (AUTO) 63.6 % (40-74); Platelet Count 243 bil/L (150-400)
[2016-11-06] MEDS: Albuterol-Ipratropium 3 mL Inhalation Solution NEB SCH ×4 (08:31→19:25)
[2016-11-06] MEDS: Insulin LISPRO 300 Unit/3 mL Inj SUBQ SCH ×4 (09:44→22:30)
[2016-11-06] MEDS ORDERED: Magnesium Sulf 4 Gm/100 mL D5W Premix IV ONE (10:25)
[2016-11-06] MEDS: predniSONE 20 mg Tablet PO SCH (10:55)
--- NOTE | 2016-11-06 11:00 | NUR ---
Social Work Note - Initial Assessment: D/A: See Initial Assessment, the Pt is an 89 y/o female that was admitted for acute kidney infection, pneumonia. Readmission Risk Score 4. The Pt's PCP is MIKHAIL Sharma and her primary insurance is Medicare with a [employer] supplement, no LTC or VA benefits noted. EMR reviewed, SW met with the Pt and her three sisters to explain role and discuss discharge planning. The Pt lives in a two story home with her daughter Dinorah and her son Maicol. The Pt does not have an Advanced Directive, paperwork provided. The Pt reports that she lives on the first level with two steps inside. The Pt's family assists with transportation and she has a cane, walker, and wheelchair. She has had [facility] in the past and has been to [facility] previously. The Pt has [facility], CM is Piedad Orellana. The Pt and family denies any needs at this time, SW to follow if needs arise. P: The Pt is not ready for discharge, will likely discharge home when medically stable with [facility] caregivers and family providing POV transportation. The Pt and family denies any needs at this time, SW to follow if needs arise. CLIVE Rico [employer] Addendum: 11/06/16 at 1105 by PATRICIA HASSAN SS Amended: Links added.
--- NOTE | 2016-11-06 11:19 | PCM.PHAPRO ---
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 nutritional status decreased?) still receiving antibiotics that may increase the inr. will resume with 4mg dose this evening and monitor Shayla Milan [facility] Nov 06, 2016 11:19
[2016-11-06] MEDS: 0.9% Sodium Chloride 1,000 ML IV SCH (12:34)
[2016-11-06] MEDS ORDERED: Albuterol HFA 60 Puff 8 Gm Inhaler INHALATION PRN (13:15)
[2016-11-06] MEDS ORDERED: Ipratropium HFA 200 Puff 12.9 Gm Inhaler INHALATION PRN (13:15)
--- NOTE | 2016-11-06 13:23 | PCM.PNMED ---
Subjective Date of Service Nov 06, 2016 Subjective Pt complains of mild shortness of breath today. She denies any fever. She complains of mild productive cough this morning. No other complaints or concerns at this time. Exam Vital Signs Vital Sign - Last Date Time Temp Pulse Resp B/P Pulse Ox O2 Delivery O2 Flow Rate FiO2 11/06/16 13:07 36.7 85 20 170/90 95 Room Air Intake and Output 11/05/16 11/05/16 11/06/16 Cumulative From/Thru 15:00 23:00 07:00 11/04/16 17:53 - 11/06/16 06:48 Intake Total 550 ml 2689 ml 4339 ml Output Total 999 ml 1149 ml Balance 550 ml 1690 ml 3190 ml Intake Oral 550 ml 600 ml 1250 ml IV Total 2089 ml 3089 ml Output Urine Total 999 ml 1149 ml # Voids 2 5 7 # Bowel Movements 0 0 0 Exam GENERAL: NAD, Pt laying in bed comfortably HEENT: AT/NC, PERRLA, EOMI, Mucus Membranes are moist CARDIAC: RRR; No M/R/G PULM: Crackles at bilateral bases with diffuse expiratory wheezes present ABD: Soft, Nontender, Nondistended, Positive bowel sounds in all quadrants, No Hepatosplenomegaly appreciated EXT: No C/C/E; No calf tenderness bilaterally SKIN: Warm, Dry, Jud, and Intact NEURO: Alert and oriented x3; Following all commands PSYCH: Normal mood and affect IVs and Medications Medications Reviewed: Medications were reviewed in detail Lab and Diagnostics Result Diagram: 11/06/1662411/06/16 06 X-Rays, CTs and MRIs X-RAY CHEST ONE VIEW, PORTABLE IMPRESSION: 1. Increased patchy left basilar opacities consistent with atelectasis or consolidation/pneumonia. 2. Moderate size hiatal hernia. Dictated by: Marlon Del Castillo M.D. on 11/04/2016 at 19:37 Approved by: Marlon Del Castillo M.D. on 11/04/2016 at 19:38 Cardiac Echo Impressions Echocardiogram Report 03/17/2016 Interpretation Summary Left ventricular systolic function is normal with the ejection fraction estimated to be 65-70%.without focal wall motion abnormalities although there is a flattened septum with paradoxical septal motion consistent with right ventricular overload. This is new compared to the previous study. The E/A ratio is reversed, suggesting impaired early relaxation of the left ventricle or a reduced preload state. The right ventricle is moderately dilated and right ventricular systolic function is severely reduced which is new compared to the previous study. The right ventricular systolic pressure is estimated to be at least 38 mmHg assuming a right atrial pressure of 8 mm Hg and is significantly higher compared to the previous study. The left atrium is small while the right atrium grossly appears normal in size. The right atrium has significantly increased in size since the prior echo exam. There is moderate to severe tricuspid regurgitation which is markedly worse compared to the previous study. There is no other significant valvular heart disease. Assessment & Plan 89 y/o Congolese-speaking female with a history cardiac arrest in the past, PE on warfarin, TIA, hypertension, asthma and DM type 2 who presented to the ED accompanied by her daughter c/o nonproductive cough and shortness of breath for the past 2days. Admitted for further management and evaluation of acute kidney injury, UTI and possible pneumonia vs asthma exacerbation. 1. Pneumonia, Community Acquired - Present on admission - Continue IV Rocephin and Azithromycin for 1 more day - Continue supplemental O2 to keep SpO2 greater than 92% - Strep Pneumoniae Ag was negative - Legionella Ag negative - Respiratory Viral PCR was negative - Repeat CBC with diff in AM - Breathing treatments PRN 2. Acute Kidney Injury - Resolved - Stop IV Normal Saline for now - Avoid nephrotoxic agents - Repeat BMP in AM 3. Urinary Tract Infection, Acute - Present on admission - This is being treated with IV Rocephin, see #1 4. Coagulopathy - INR is now therapeutic - Resume Warfarin now, pharmacy managing - Repeat INR in AM 5. Asthma, Stable - Pt having a mild exacerbation today - Will start pt on Prednisone 40 mg PO daily - Continue breathing treatments PRN - Continue supplemental O2 to keep SpO2 greater than 92% - Continue home inhalers 6. Essential Hypertension - Resume home Lisinopril and HCTZ now - Monitor BP closely 7. Diabetes Mellitus, Type II - Continue checking FSBS q AC and HS - Continue SSI while pt is in hospital - Continue to hold Metformin for now while pt is in hospital - Carbohydrate controlled diet 8. Hyperlipidemia - Continue statin therapy 9. Disposition - Anticipate discharge to home in the next 1-2 days or so Resuscitation Status: CPR: Attempt Resuscitation Addi Lopez MD Nov 06, 2016 13:23
[2016-11-06] MEDS: Fluticasone-Salmererol 250-50 Inhaler INHALATION SCH ×2 (14:08→20:30)
--- NOTE | 2016-11-06 15:59 | DRSVH ---
[facility] [address] [place] [address] Echocardiogram Report Name: KAI QUINTANA Raman e: 11/06/2016 Height: 62 in Hospital Exam Location: [facility] Weight: 153 lb Gender: Female BSA: 1.7 m2 : 1925 Age: 89 yrs BP: 168/81 mm Hg Reason For Study: SOB Ordering Physician: [facility] Performed By: Mallory Lamb Referring Physician: Tri Sharma Interpretation Summary 1. Normal left ventricular size, wall thickness and systolic function with an estimated EF of 60-65% 2. Normal right ventricular size and systolic function. The estimated right atrial pressure is normal. 3. Although the valves were not optimally visualized, there is no doppler evidence for significant valvular pathology Compared to the previous study, the right ventricle does not appear dilated and the systolic function appears normal. Procedure: A two-dimensional transthoracic echocardiogram with color flow and Doppler was performed. The study quality was technically difficult. Comparison is made with the echocardiogram of 03/17/2016. The patient was in atrial fibrillation with heart rates between 84-93 bpm during the exam. Left Ventricle: The left ventricle is normal in size. Left ventricular wall thickness is at the upper limits of normal. The ejection fraction is estimated to be 60-65%. Diastolic function could not be accurately assessed due to atrial fibrillation. Right Ventricle: The right ventricle is normal in size and function. Atria: The left atrial size is normal. Right atrium not well visualized. No color doppler evidence for an ASD. Mitral Valve: There is mild to moderate mitral annular calcification. There is no mitral regurgitation noted. Aortic Valve: The aortic valve is not well visualized. The aortic valve is grossly normal. No aortic regurgitation is present. Tricuspid Valve: The tricuspid valve is not well visualized. Pulmonary artery pressures cannot be estimated because of the lack of a measurable TR jet velocity. Pulmonic Valve: The pulmonic valve is not well visualized. Great Vessels: The aortic root is normal size. The ascending aorta is normal in size. The IVC is of normal diameter and collapses less than 50% with a sniff. This suggests a right atrial pressure of 8 mm Hg. Pericardium/ Pleura There is no pericardial effusion. MMode/2D Measurements & Calculations LVIDd: 4.3 cm LA A2 area Ao root diam LV christianson. diameter/BSA LVIDs: 3.1 cm (cm/m^2): 2.5 FS: 27.7 % asc Aorta IVSd: 0.99 cm LA A4 area Diam: 3.1 cm LVPWd: 0.81 cm LA length (vol) LA vol: 48.3 ml LA vol index IVC diam: 1.5 cm LV sys. diameter/BSA RVD1 (basal) (cm/m^2): 1.8 Doppler Measurements & Calculations Ao V2 max MV E max enrique PA V2 max MV dec time : 118.7 cm/sec : 149.5 cm/sec : 86.7 cm/sec : 0.13 sec Ao max P.6 mmHg PA mean PG Ao mean P.1 mmHg LVOT Max Enrique PA Accel Time : 80.0 cm/sec sev ratio: 0.74 Ao V2 mean LV V1 max PG PA V2 mean : 83.8 cm/sec : 62.5 cm/sec Ao V2 VTI: 24.6 cm LV V1 VTI: 18.2 cm Reading Physician:03:[id number] PM
[2016-11-06] MEDS ORDERED: Albuterol 2.5 mg/3 mL Inhalation Solution NEB PRN (16:00)
[2016-11-06] MEDS: Sodium Chloride LOK Flush 10 mL Syringe IVFLUSH SCH ×2 (17:39→23:50)
[2016-11-06] MEDS: Polyethylene Glycol (PEG) 17 Gm Powder PO PRN (17:41)
--- NOTE | 2016-11-06 18:35 | NUR ---
Respiratory- Patient denies shortness at rest when sitting in chair. Lungs with scattered crackles and wheezes. Room air Spo2> 92%
[2016-11-06] MEDS ORDERED: Budesonide-Formot 160-4.5 mCg 6.9 Gm Inhaler INHALATION SCH (20:30)
[2016-11-06] MEDS: cefTRIAXone Inj 2,000 MG in Dextrose 5% Minibag Plus 50 ML IV SCH (20:44)
[2016-11-06] MEDS: Azithromycin Inj 500 MG in Dextrose 5% w/Vial Mate 250 ML IV SCH (22:58)
[2016-11-07 00:17] VITALS: BP 135/66; PULSE 89; RESP 18; O2SAT 98
--- NOTE | 2016-11-07 04:32 | NUR ---
Respiratory Pt. has had an intermittent cough tonight, with no sputum noted. Pt. denies shortness of breath. Donkey Engine Firer/Fireman used during care. Will continue to monitor.
[2016-11-07 05:02] VITALS: PULSE 97
[2016-11-07 05:14] VITALS: BP 175/69; PULSE 75; RESP 20; O2SAT 96
[2016-11-07 06:39] LABS: BASOPHILS % (AUTO) 0.1 % (0-3); EOSINOPHILS % (AUTO) 0 % (0-5); MONOCYTES % (AUTO) 7.9 % (4-12); Mean Corpuscular Hemoglobin 28.9 pg (27.0-35.0); Mean Corpuscular Volume 87.3 fL (81-100); NEUTROPHILS % (AUTO) 63.3 % (40-74); Platelet Count 243 bil/L (150-400)
[2016-11-07 06:47] LABS: INR 1.85 ratio
[2016-11-07 07:56] VITALS: PULSE 78; RESP 16; O2SAT 97
[2016-11-07] MEDS: Albuterol-Ipratropium 3 mL Inhalation Solution NEB SCH (07:56)
[2016-11-07 08:00] VITALS: PULSE 74
[2016-11-07] MEDS: Insulin LISPRO 300 Unit/3 mL Inj SUBQ SCH (08:24)
[2016-11-07] MEDS: Fluticasone-Salmererol 250-50 Inhaler INHALATION SCH (08:26)
[2016-11-07] MEDS: predniSONE 20 mg Tablet PO SCH (08:26)
[2016-11-07] MEDS: Sodium Chloride LOK Flush 10 mL Syringe IVFLUSH SCH (08:30)
[2016-11-07] MEDS ORDERED: PRED-508 PO (08:57)
--- NOTE | 2016-11-07 08:59 | PCM.DIMED ---
Discharge Instructions Date of Service Nov 07, 2016 Dates of Hospitalization Nov 04, 2016 at 20:28 Discharge Diagnosis Discharge Diagnosis 1. Pneumonia, Community Acquired, Resolved 2. Asthma, Acute Exacerbation, Mild, Resolving 3. Essential Hypertension 4. Diabetes Mellitus Type II 5. Hx of Atrial Fibrillation on chronic anticoagulation with Warfarin 6. Hypomagnesemia, Resolved Diet Heart Healthy, Diabetic Activity No restrictions Call your provider Fever or Chills, Shortness of breath, Bleeding, Chest pain, Vomitting, Excessive diarrhea, Weakness (unilateral) Patient Instructions Follow-up with PCP in: 1 week (Pts family to call for an appointment) Addi Lopez MD Nov 07, 2016 08:59
[2016-11-07 09:59] VITALS: BP 162/89; PULSE 89; RESP 18; O2SAT 97
--- NOTE | 2016-11-07 11:55 | NUR ---
DISCHARGE Reviewed discharge paperwork with patient and patient's daughter, Dinorah. New medication, prednisone, information given with discharge paperwork. Hard copy Rx given to son, Maicol, to fill prior to discharge. IV was taken out by SN, with observation. Catheter removed intact. Patient stated she was feeling much better and ready to go home. Transferred into wheelchair with 2 person assist and taken outside to personal family vehicle. Left with all personal belongings.
--- NOTE | 2016-11-07 12:25 | PCM.DC.MED ---
Discharge Summary Date of Service Nov 07, 2016 Dates of Hospitalization Date of Hospital Admission Nov 04, 2016 at 20:28 Date of Discharge: Nov 07, 2016 Providers: Admitting Physician: Penny Scott DO Primary Care Physician: Tri Sharma Attending Physician: Penny Scott DO Diagnosis at Time of Discharge Diagnosis at Time of Discharge 1. Pneumonia, Community Acquired, Resolved 2. Asthma, Acute Exacerbation, Mild, Resolving 3. Essential Hypertension 4. Diabetes Mellitus Type II 5. Hx of Atrial Fibrillation on chronic anticoagulation with Warfarin 6. Hypomagnesemia, Resolved Procedures XRay, CTs & MRIs X-RAY CHEST ONE VIEW, PORTABLE IMPRESSION: 1. Increased patchy left basilar opacities consistent with atelectasis or consolidation/pneumonia. 2. Moderate size hiatal hernia. Dictated by: Marlon Del Castillo M.D. on 11/04/2016 at 19:37 Approved by: Marlon Del Castillo M.D. on 11/04/2016 at 19:38 Cardiac Echo Impression Echocardiogram Report 03/17/2016 Interpretation Summary Left ventricular systolic function is normal with the ejection fraction estimated to be 65-70%.without focal wall motion abnormalities although there is a flattened septum with paradoxical septal motion consistent with right ventricular overload. This is new compared to the previous study. The E/A ratio is reversed, suggesting impaired early relaxation of the left ventricle or a reduced preload state. The right ventricle is moderately dilated and right ventricular systolic function is severely reduced which is new compared to the previous study. The right ventricular systolic pressure is estimated to be at least 38 mmHg assuming a right atrial pressure of 8 mm Hg and is significantly higher compared to the previous study. The left atrium is small while the right atrium grossly appears normal in size. The right atrium has significantly increased in size since the prior echo exam. There is moderate to severe tricuspid regurgitation which is markedly worse compared to the previous study. There is no other significant valvular heart disease. Brief History 89 y/o Cuban-speaking female with a history of asthma, DM type 2, hypertension , recurrent UTIs, and SV admission in February of 2016 following a cardiac arrest secondary to PE who presented today with the complaint of worsening shortness of breath for the past 2 days. Associated symptoms include subjective fevers, chills, diaphoresis, nonproductive cough, wheezing, fatigue, generalized weakness, headache, mild nausea, and back pain. Patient is accompanied by her daughter and caregiver, Dinorah who is Frisian speaking and able to provide additional history. Per the patient and her daughter she endorses recurrent UTIs and recently started on Macrobid (11/01/16) by her PCP for active UTI. Additionally, daughter reports asthma has been well-controlled on current therapy. Patient denies ever being a smoker and notes a long- standing history of asthma. No other family members or caregivers have been sick and both patient and her daughter deny sick contacts. Today patient endorses ongoing dysuria and denies hematuria or increased urinary frequency, although this is somewhat difficult to asses as the patient is incontinent of urine. Per chart review, patient was seen by Urology in July of this year for bladder retention and passed a voiding trial. Recommendations at that time were continued followup with PCP and possible cystoscopy in the future. Patient denies chest pain, congestion, hemoptysis, abdominal pain, vomiting, diarrhea or lower extremity swelling. Of note the patient's daughter notes an increase in the patient's left hand tremor. She states that she brought this up with the patient's PCP last week but states that it was not addressed. In the ED, vitals: temp36.8, BP 139/76, pulse 95, RR 20, 95% on room air. Labs : wbc 10.7, H/H 10.0/31.2, sodium 129, potassium 3.9, chloride 91, bicarb 22, BUN 31, creatinine 1.41 (Baseline creatinine appears to be 0.8-1.0), serum glucose 189, troponnin negative x1, pro BNP 790.7 (proBNP on 03/02/16 was 795.6). PT/INR 36.8/3.36. UA with moderate leukocytes esterase, negative nitrite, few bacteria and occult blood. ECG showing NSR with rate 89, no ST elevation and unchanged from prior (07/17/16). Chest xray showing an increase in left basilar opacities consistent with atelectasis or consolidation/pneumonia, moderate sized hiatal hernia. She received- 500mg of oral azithromycin, 1g IV ceftriaxone, 324mg oral aspirin , and nebulizer treatments. Hospital Course 89 y/o Cuban-speaking female with a history cardiac arrest in the past, PE on warfarin, TIA, hypertension, asthma and DM type 2 who presented to the ED accompanied by her daughter c/o nonproductive cough and shortness of breath for the past 2days. Admitted for further management and evaluation of acute kidney injury, UTI and possible pneumonia vs asthma exacerbation. 1. Pneumonia, Community Acquired - Present on admission - Resolved - Pt received IV Rocephin and Azithromycin for 3 days total - Her procalcitonin and WBC count were normal on day of discharge - Strep Pneumoniae Ag was negative - Legionella Ag negative - Respiratory Viral PCR was negative - Pt is discharged to home in good/stable condition 2. Acute Kidney Injury - Resolved - Pt was initially given IV Normal Saline however this was stopped after pts creatinine returned to a normal level - Pt is tolerating PO well on day of discharge 3. Urinary Tract Infection, Acute - Present on admission - Resolved - This was being treated with IV Rocephin for 3 days, see #1 4. Coagulopathy - INR is now therapeutic - Resume Warfarin now at home dose - Recheck with PCP within a week of discharge, pt or pts family to call for an appointment 5. Asthma, Stable - Pt having a mild exacerbation initially but now much improved - Continue Prednisone 40 mg PO daily for 5 days total - Continue breathing treatments PRN - Continue home inhalers 6. Essential Hypertension - Continue home medications 7. Diabetes Mellitus, Type II - Resume home medications 8. Hyperlipidemia - Continue statin therapy Exam Vital Signs (Last) Date Time Temp Pulse Resp B/P Pulse Ox O2 Delivery O2 Flow Rate FiO2 11/07/16 09:59 36.6 89 18 162/89 97 Room Air Exam GENERAL: NAD, Pt laying in bed comfortably HEENT: AT/NC, PERRLA, EOMI, Mucus Membranes are moist CARDIAC: RRR; No M/R/G PULM: CTAB; No wheezes or rhonchi bilaterally ABD: Soft, Nontender, Nondistended, Positive bowel sounds in all quadrants, No Hepatosplenomegaly appreciated EXT: No C/C/E; No calf tenderness bilaterally SKIN: Warm, Dry, [place], and Intact NEURO: Alert and oriented x3; Following all commands PSYCH: Normal mood and affect Test 11/04/16 18:45 11/04/16 19:23 11/04/16 19:28 11/05/16 05:25 Activated Partial Thromboplast Time 44.0sec (22.8-33.0) Hemoglobin A1c 7.0% (4.8-5.6) Troponin T < 0.010ug/L (0.0-0.011) Pro-B-Type Natriuretic Peptide 790.7pg/mL (0-738) Hold Diaz Top Tube Received (Received) Urine Legionella pneumophilia Ag Negative (Negative) Urine Color Yellow (YELLOW) Urine Appearance Clear (CLEAR,HAZY) Urine pH 5.5 (5.0-8.0) Urine Specific [place] 1.025 (1.003-1.035) Urine Protein Tracemg/dL (NEG,TRACE) Urine Glucose (UA) Negativemg/dL (NEGATIVE) Urine Ketones Negativemg/dL (NEGATIVE) Urine Occult Blood Small (NEGATIVE) Urine Nitrite Negative (NEGATIVE) Urine Bilirubin Negative (NEGATIVE) Urine Urobilinogen Normalmg/dL (NORMAL) Urine Leukocyte Esterase Moderate (NEGATIVE) Urine RBC 0-2/hpf (0-2) Urine WBC 0-5/hpf (0-5) Urine Epithelial Cells Few/hpf (NONE-MOD) Urine Crystals None seen (NONE SEEN) Urine Bacteria Few/hpf (NONE-FEW) Urine Hyaline Casts None/lpf (NONE) Urine Granular Casts None seen (NONE SEEN) Urine Waxy Casts None seen (NONE SEEN) Urine Red Blood Cell Casts None seen (NONE SEEN) Urine White Blood Cell Casts None seen (NONE SEEN) Urine Mucus None seen (None Seen) Urine Trichomonas None seen (NONE SEEN) Urine Yeast None (NONE SEEN) Urinalysis Comment None Urine Culture Reflexed Indicated Phosphorus Level 2.9mg/dL (2.5-4.9) Total Bilirubin 0.3mg/dL (0.0-1.2) Aspartate Amino Transf (AST/SGOT) 10U/L (0-50) Alanine Aminotransferase (ALT/SGPT) 7U/L (0-32) Alkaline Phosphatase 65U/L (25-165) Total Protein 6.1g/dL (6.4-8.4) Albumin 3.1g/dL (3.4-5.0) Test 11/07/16 06:05 White Blood Count 7.2th/mm3 (3.8-10.1) Red Blood Count 3.32mil/mm3 (3.90-5.20) Hemoglobin 9.6g/dL (12.0-15.6) Hematocrit 29.0% (35.0-46.0) Mean Corpuscular Volume 87.3fL (81-100) Mean Corpuscular Hemoglobin 28.9pg (27.0-35.0) Mean Corpuscular Hemoglobin Concent 33.1% (32.0-37.0) Red Cell Distribution Width 12.9% (12.3-15.4) Platelet Count 243bil/L (150-400) Neutrophils (%) (Auto) 63.3% (40-74) Lymphocytes (%) (Auto) 28.4% (14-46) Monocytes (%) (Auto) 7.9% (4-12) Eosinophils (%) (Auto) 0% (0-5) Basophils (%) (Auto) 0.1% (0-3) Prothrombin Time 20.0sec (8.1-12.5) Prothromb Time International Ratio 1.85ratio Sodium Level 136mEq/L (134-144) Potassium Level 4.3mEq/L (3.5-5.2) Chloride Level 100mEq/L (97-108) Carbon Dioxide Level 22mmol/L (18-29) Blood Urea Nitrogen 15mg/dL (8-27) Creatinine 0.79mg/dL (0.57-1.00) Estimat Glomerular Filtration Rate 98mL/min (>59) Glucose Level 210mg/dL (60-99) Calcium Level 9.4mg/dL (8.5-10.1) Magnesium Level 2.3mg/dL (1.6-2.6) Procalcitonin 0.07ng/mL (0.00-0.08) Discharge Medications Discharge Medications Atorvastatin Calcium (Atorvastatin Calcium) 20 Mg Tablet 20 MG PO HS (Reported) Budesonide/Formoterol 160-4.5 mcg Inh (Symbicort 160-4.5 mcg Inh) 120 Puff Inhaler 1 PUFF INHALATION BID (Reported) Hydrochlorothiazide (Hydrochlorothiazide) 25 Mg Tablet 25 MG PO QAM (Reported) Insulin Human Lispro (HumaLOG U100 Insulin Vial) 100 Unit/Ml Unit 1-12 UNIT SUBQ TIDWM (Reported) use per sliding scale Lisinopril (Lisinopril) 40 Mg Tablet 40 MG PO QAM (Reported) Metformin ER (Metformin ER) 500 Mg Tablet 500 MG PO DAILYWD (Reported) Mirtazapine (Mirtazapine) 15 Mg Tablet 7.5 MG PO HS (Reported) Nitrofurantoin Monohyd/M-Cryst (MacroBid) 100 Mg Capsule 100 MG PO BID (Reported ) Omeprazole (Omeprazole) 20 Mg Capsule.dr 20 MG PO QAM (Reported) Prednisone (Deltasone) 20 Mg Tablet 40 MG PO DAILY Prescribed by: RAVIN ELIZONDO MD Tamsulosin ER (Tamsulosin ER) 0.4 Mg Cap.er.24h 0.4 MG PO HS (Reported) Tramadol (Tramadol) 50 Mg Tablet 50 MG PO QAM (Reported) Warfarin Sodium (Warfarin Sodium) 3 Mg Tablet 3 MG PO /// (Reported) 4 MG FRI/FRI/FRI, 3 MG ALL OTHER DAYS Warfarin Sodium (Warfarin Sodium) 4 Mg Tablet 4 MG PO FRI/FRI/FRI (Reported) 4 MG FRI/FRI/FRI, 3 MG ALL OTHER DAYS As needed Albuterol HFA (Proair HFA) 8.5 Gm Hfa.aer.ad 2 PUFFS IH Q4 PRN PRN For Shortness of Breath (Reported) Albuterol Neb Soln (Albuterol Neb Soln) 2.5 Mg/3 Ml Vial.neb 2.5 MG INHALATION Q4H PRN PRN For Shortness of Breath (Reported) Ipratropium [place] (Atrovent HFA) 200 Puff/12.9 Gm Inhaler 2 PUFF INH QID PRN PRN For Wheezing (Reported) Followup Plan Discharge Diet: Heart Healthy, Diabetic Discharge Activity: No restrictions Follow-up with PCP in: 1 week (Pts family to call for an appointment, and pt to have her INR checked within a week of discharge) Time spent 35 minutes Ravin Elizondo MD Nov 07, 2016 12:25
--- NOTE | 2016-11-22 08:50 | NUR ---
Palliative Care Referral Note11/22/16 Palliative Care received referral from pt.'s PCP, rTi Sharma on November 08, for review of pain management issues and psycho-social support issues. Pt. has CORE[facility] services through [facility] and this racebook writer called [facility] to see if they can provide additional family support. Ketty Guy, Director of Case Management at [facility] noted that pt.'s family contacted [facility] this week to seek additional care support. Per Ketty pt. will be reassessed for service needs on Friday, November 25. This racebook writer called and left message for pt.'s PCP regarding plan for [facility] to provide additional resources to pt. and to inform that Palliative Care will not initiate services for pt. at this time as pt.'s care needs appear to be more focused around psycho-social support needs. CLIVE Sandoval, [facility] Palliative Interlacer
== END 2016-11-07 11:46 | disposition home or self-care (01) | DRG 190 ==
LOC: SED 17:51 → OSC 20:28
PROVIDERS: ADMIT Internal Medicine; ATTEND Internal Medicine
DX: J44.0 Chronic obstructive pulmonary disease with (acute) lower respiratory infection (principal); J18.9 Pneumonia, unspecified organism; N39.0 Urinary tract infection, site not specified; E87.1 Hypo-osmolality and hyponatremia; N17.9 Acute kidney failure, unspecified; J45.901 Unspecified asthma with (acute) exacerbation; Z79.01 Long term (current) use of anticoagulants; E11.9 Type 2 diabetes mellitus without complications; E78.5 Hyperlipidemia, unspecified; Z86.73 Personal history of transient ischemic attack (TIA), and cerebral infarction without residual deficits; I12.9 Hypertensive chronic kidney disease with stage 1 through stage 4 chronic kidney disease, or unspecified chronic kidney disease; N18.2 Chronic kidney disease, stage 2 (mild); Z79.4 Long term (current) use of insulin; D64.9 Anemia, unspecified; G89.29 Other chronic pain

== ENCOUNTER 2016-12-17 16:18 | Emergency (ER) | payer MEDICARE, MEDICAID ==
[~2016-12-17] VITALS: Ht 157.5 cm; Wt 70.5 kg
[~2016-12-17 16:18] MED LIST changes: -AMLO5TAB2 PO; -INSU100I13 SUBQ; +NITR100 PO; +PRED-508 PO; +SYMINH INHALATION; +TAMS0.4C29 PO; -TAMS0.4C98 PO
[2016-12-17 16:22] VITALS: BP 130/75; PULSE 88; RESP 20; O2SAT 97
--- NOTE | 2016-12-17 17:03 | ED.REPORT ---
HPI-General Illness Date of Service December 17, 2016 ED Provider: Dr. Raheel Ellis MD Patient is an 89 year old female with a history of COPD, hypertension, stage II CKD, hyperlipidemia, UT, TIA, diabetes mellitus, recurrent UTI's and previous PE on Warfarin who presents to the ED via EMS with dyspnea that became increasingly worse earlier this afternoon. Patient was seen today at Urgent Care prior to arrival for bilateral foot edema and urinary retention with frequent urgency. Patient has been using her nebulizer up to 4 times per day and is currently out of the albuterol for her inhaler. Urine was milky 3 weeks ago and the patient received antibiotics and was placed on a unduly catheter till the infection resolved. Patient was recently admitted on 11/04 for acute kidney injury and was discharged on 11/07 with plan to follow up with urology. Nursing Notes Stated Complaint: POSSIBLE WATER IN LUNG Chief Complaint: General Complaint Nursing Notes Reviewed: Yes Allergies: Coded Allergies: No Known Allergies (Verified Allergy, Unknown, 07/17/16) Scheduled Atorvastatin Calcium (Atorvastatin Calcium) 20 Mg Tablet 20 MG PO HS Budesonide/Formoterol 160-4.5 mcg Inh (Symbicort 160-4.5 mcg Inh) 120 Puff Inhaler 1 PUFF INHALATION BID Cephalexin (Cephalexin) 500 Mg Capsule 500 MG PO TID Hydrochlorothiazide (Hydrochlorothiazide) 25 Mg Tablet 25 MG PO QAM Insulin Human Lispro (HumaLOG U100 Insulin Vial) 100 Unit/Ml Unit 1-12 UNIT SUBQ TIDWM use per sliding scale Lisinopril (Lisinopril) 40 Mg Tablet 40 MG PO QAM Metformin ER (Metformin ER) 500 Mg Tablet 500 MG PO DAILYWD Mirtazapine (Mirtazapine) 15 Mg Tablet 7.5 MG PO HS Nitrofurantoin Monohyd/M-Cryst (MacroBid) 100 Mg Capsule 100 MG PO BID Omeprazole (Omeprazole) 20 Mg Capsule.dr 20 MG PO QAM Prednisone (Deltasone) 20 Mg Tablet 40 MG PO DAILY Tamsulosin ER (Tamsulosin ER) 0.4 Mg Cap.er.24h 0.4 MG PO HS Tramadol (Tramadol) 50 Mg Tablet 50 MG PO QAM Warfarin Sodium (Warfarin Sodium) 3 Mg Tablet 3 MG PO ///[place] 4 MG FRI/FRI/FRI, 3 MG ALL OTHER DAYS Warfarin Sodium (Warfarin Sodium) 4 Mg Tablet 4 MG PO FRI/FRI/FRI 4 MG FRI/FRI/FRI, 3 MG ALL OTHER DAYS Scheduled PRN Albuterol HFA (Proair HFA) 8.5 Gm Hfa.aer.ad 2 PUFFS IH Q4 PRN PRN For Shortness of Breath Albuterol Neb Soln (Albuterol Neb Soln) 2.5 Mg/3 Ml Vial.neb 2.5 MG INHALATION Q4H PRN PRN For Shortness of Breath Ipratropium [place] (Atrovent HFA) 200 Puff/12.9 Gm Inhaler 2 PUFF INH QID PRN PRN For Wheezing General Time Seen by MD: 17:03 Chief Complaint Other (Dyspnea) Hx Obtained From: Patient Arrived By: Ambulance Sudden in Onset?: No Symptom Duration: Since onset Associated with: Reports: Shortness of breath, Weakness Pertinent Negative: Pt denies other symptoms Recent Healthcare: Recent doctor visit, Recent hospitalization Past Medical History Past Medical History Notes: PCP: MIKHAIL Sharma Code status 11/04/2016: full code Urology: Dr. 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 Other Social History: Good social support, Local resident Ambulatory Status Independent Review of Systems Full Review of Systems Constitutional: Denies: Chills, Fever Respiratory: Reports: Dyspnea on exertion, Shortness of breath, Wheezing Female: Reports: Urinary urgency, Urination decreased Musculoskeletal: Reports: Extremity swelling (feet) Neurologic: Reports: Weakness Complete sys rev & neg: except as marked. Physical Exam Vital Signs Vital Signs Date Time Temp Pulse Resp B/P Pulse Ox O2 Delivery O2 Flow Rate FiO2 12/17/16 20:36 86 22 169/73 96 Room Air 12/17/16 19:54 87 16 148/102 97 Room Air 12/17/16 18:39 88 22 100 Room Air 12/17/16 18:04 85 28 151/78 98 Room Air 12/17/16 16:22 36.2 88 20 130/75 97 Room Air Initial VS: Reviewed Neck: Supple, Non-tender, Full range of motion Extremities: Vascular intact, Neuro intact, No swelling, No tenderness Skin: Warm, Dry, No cyanosis Neurologic: Alert, Oriented, Nonfocal Psychiatric: Mood/affect normal, Behavior normal, Normal thought content General/Constitutional: Awake, Alert, No acute distress Head / Eyes: Atraumatic, Normocephalic, PERRL Respiratory / Chest: Atraumatic Wheezing / Retractions: Positive: Wheeze insp/exp diffuse (Scattered) Cardiovascular: Heart rate NL, Regular rhythm, Heart sounds NL, No gallop, No murmurs, No rubs Lower Ext Edema: Positive: Bilateral 1+ Abdomen: Atraumatic, Soft, Non-tender Back: Atraumatic, Inspection NL, No CVA tenderness Interpretation & Diagnostics Lab Results Interpretation Result Diagram: 12/17/16 1725 12/17/16 1725 Test 12/17/16 17:25 12/17/16 18:45 White Blood Count 7.7th/mm3 (3.8-10.1) Red Blood Count 3.37mil/mm3 (3.90-5.20) Hemoglobin 9.6g/dL (12.0-15.6) Hematocrit 29.9% (35.0-46.0) Mean Corpuscular Volume 88.7fL (81-100) Mean Corpuscular Hemoglobin 28.5pg (27.0-35.0) Mean Corpuscular Hemoglobin Concent 32.1% (32.0-37.0) Red Cell Distribution Width 14.0% (12.3-15.4) Platelet Count 293bil/L (150-400) Neutrophils (%) (Auto) 59.2% (40-74) Lymphocytes (%) (Auto) 30.3% (14-46) Monocytes (%) (Auto) 8.5% (4-12) Eosinophils (%) (Auto) 1.2% (0-5) Basophils (%) (Auto) 0.4% (0-3) Sodium Level 134mEq/L (134-144) Potassium Level 4.1mEq/L (3.5-5.2) Chloride Level 96mEq/L (97-108) Carbon Dioxide Level 22mmol/L (18-29) Blood Urea Nitrogen 27mg/dL (8-27) Creatinine 1.19mg/dL (0.57-1.00) Estimat Glomerular Filtration Rate 61mL/min (>59) Glucose Level 158mg/dL (60-99) Calcium Level 9.4mg/dL (8.5-10.1) Magnesium Level 1.4mg/dL (1.6-2.6) Total Bilirubin 0.3mg/dL (0.0-1.2) Aspartate Amino Transf (AST/SGOT) 16U/L (0-50) Alanine Aminotransferase (ALT/SGPT) 13U/L (0-32) Alkaline Phosphatase 96U/L (25-165) Troponin T < 0.010ug/L (0.0-0.011) Pro-B-Type Natriuretic Peptide 799.5pg/mL (0-738) Total Protein 7.1g/dL (6.4-8.4) Albumin 3.6g/dL (3.4-5.0) Urine Color Yellow (YELLOW) Urine Appearance Hazy (CLEAR,HAZY) Urine pH 6.0 (5.0-8.0) Urine Specific [place] 1.015 (1.003-1.035) Urine Protein 100mg/dL (NEG,TRACE) Urine Glucose (UA) Negativemg/dL (NEGATIVE) Urine Ketones Negativemg/dL (NEGATIVE) Urine Occult Blood Small (NEGATIVE) Urine Nitrite Negative (NEGATIVE) Urine Bilirubin Negative (NEGATIVE) Urine Urobilinogen Normalmg/dL (NORMAL) Urine Leukocyte Esterase Large (NEGATIVE) Urine RBC 3-10/hpf (0-2) Urine WBC >50/hpf (0-5) Urine Epithelial Cells Moderate/hpf (NONE-MOD) Urine Crystals None seen (NONE SEEN) Urine Bacteria Many/hpf (NONE-FEW) Urine Hyaline Casts None/lpf (NONE) Urine Granular Casts None seen (NONE SEEN) Urine Waxy Casts None seen (NONE SEEN) Urine Red Blood Cell Casts None seen (NONE SEEN) Urine White Blood Cell Casts None seen (NONE SEEN) Urine Mucus None seen (None Seen) Urine Trichomonas None seen (NONE SEEN) Urine Yeast None (NONE SEEN) Urinalysis Comment Amorphous sediment Urine Culture Reflexed Indicated Point of Care Testing: Hemoglobin normal (Stable), Hematocrit normal (Stable) General Lab Results Interp 2: BNP elevated (Stable) ECG Interpretation ECG Interpretation: Sinus Rhythm Rate 84 Time: 17:40 Interpreted by: ED physician Normal ECG Interpretation: No change from prior ECGs (11/04/16) BMP / CMP Interpretation BUN elevated (from previous), Creatinine elevated (from prior ) X-Ray Chest Interpretation Chest Xray Interpretation: IMPRESSION: Normal chest. Dictated by: Jaycob Velázquez M.D. on 12/17/2016 at 17:39 Interpretation / Wet Read by: Interpret - Radiologist Re-Eval/Medical Decision Med Decision/Clinical Course 400 cc Post void residual- matthew placed and left in. rocephin 2g IV then cephalexen. Time of Eval: 19:39 Patient Status: Condition improved Re-Evaluation/Progress Note: Pt is rechecked. She is informed of her results and diagnosis. All of the patient's questions about her diagnosis and treatment plan are addressed. She understands and agrees with the treatment plan. Counseled Regarding: Diagnosis, Lab results, Need for follow-up, When/why to return to ED Discharge & Departure Primary Impression: Urinary tract infection Urinary tract infection type: acute cystitis Hematuria presence: without hematuria Qualified Code: N30.00 - Acute cystitis without hematuria Additional Impression: Urinary retention Disposition: Home Discharge Condition All VS Reviewed: Yes Condition: Improved Additional Instructions: Thank you for trusting us with your care this afternoon. Your emergency department evaluation today included interview, examination, lab work, EKG and chest X-ray. We found a urinary tract infection and urinary retention. A Matthew catheter was placed, call your urologist tomorrow for follow-up regarding this. Antibiotics have been started for urinary tract infection, cephalexin 500 mg 3 times a day for 5 days. Please return to the emergency department if you develop any new or worsening symptoms including fevers, shaking chills frequent vomiting or shortness of breath. Referrals: Tri Sharma (PCP) Mitchel John MD Attestation Portions of this note were transcribed by Gwen Freedman. IDr. Ellis personally performed the history, physical exam and medical decision-making; I reviewed and confirmed the accuracy of the information in the transcribed note. Signed by: Yong Marcial, 12/17/162024. copies to: Tri Sharma; Mitchel John MD, Donald L MD December 17, 2016 17:03 GWEN FREEDMAN December 17, 2016 17:11
[2016-12-17 17:37] LABS: BASOPHILS % (AUTO) 0.4 % (0-3); EOSINOPHILS % (AUTO) 1.2 % (0-5); MONOCYTES % (AUTO) 8.5 % (4-12); Mean Corpuscular Hemoglobin 28.5 pg (27.0-35.0); Mean Corpuscular Volume 88.7 fL (81-100); NEUTROPHILS % (AUTO) 59.2 % (40-74); Platelet Count 293 bil/L (150-400)
--- NOTE | 2016-12-17 17:47 | DRSVH ---
PROCEDURE: X-RAY CHEST, TWO VIEWS ([id number]) INDICATIONS: sob TECHNIQUE: 2 views of the chest were acquired. COMPARISON: [facility], CR, XR CHEST 2VW, 08/01/2016, 12:18. FINDINGS: Surgical changes and devices: None. Lungs and pleura: No pleural effusions or pneumothorax. Lungs are clear. Mediastinum: Mediastinal contours are normal. Heart size is normal. Bones and chest wall: No suspicious bony abnormalities. Soft tissues appear unremarkable. IMPRESSION: Normal chest. Dictated by: Jaycob Velázquez M.D. on 12/17/2016 at 17:39 Approved by: Jaycob Velázquez M.D. on 12/17/2016 at 17:40
[2016-12-17 18:04] VITALS: BP 151/78; PULSE 85; RESP 28; O2SAT 98
[2016-12-17 18:13] LABS: Magnesium 1.4 mg/dL (1.6-2.6); TROPONIN T < 0.010 ug/L (0.0-0.011)
[2016-12-17] MEDS ORDERED: Albuterol 2.5 mg/3 mL Inhalation Solution NEB ONE (18:35)
[2016-12-17 18:39] VITALS: PULSE 88; RESP 22; O2SAT 100
[2016-12-17 19:08] LABS: APPEARANCE,URINE HAZY (CLEAR,HAZY); COLOR,URINE YELLOW (YELLOW); OCCULT BLOOD,URINE SMALL (NEGATIVE); UROBILINOGEN,URINE NORMAL (NORMAL)
[2016-12-17] MEDS ORDERED: cefTRIAXone Inj 2,000 MG in Dextrose 5% Minibag Plus 50 ML IV ONE (19:40)
[2016-12-17] MEDS ORDERED: CEPH500C PO (19:44)
[2016-12-17 19:54] VITALS: BP 148/102; PULSE 87; RESP 16; O2SAT 97
[2016-12-17 20:36] VITALS: BP 169/73; PULSE 86; RESP 22; O2SAT 96
== END 2016-12-17 20:38 | disposition home or self-care (01) ==
LOC: SED 16:18
DX: N30.00 Acute cystitis without hematuria (principal); R33.9 Retention of urine, unspecified; R60.0 Localized edema; I13.10 Hypertensive heart and chronic kidney disease without heart failure, with stage 1 through stage 4 chronic kidney disease, or unspecified chronic kidney disease; E11.59 Type 2 diabetes mellitus with other circulatory complications; E11.22 Type 2 diabetes mellitus with diabetic chronic kidney disease; N18.2 Chronic kidney disease, stage 2 (mild); I25.2 Old myocardial infarction; J45.909 Unspecified asthma, uncomplicated; J44.9 Chronic obstructive pulmonary disease, unspecified; E78.5 Hyperlipidemia, unspecified; Z86.73 Personal history of transient ischemic attack (TIA), and cerebral infarction without residual deficits; Z87.440 Personal history of urinary (tract) infections; Z79.01 Long term (current) use of anticoagulants; Z79.4 Long term (current) use of insulin
CPT/HCPCS: 36415; 51702; 71020; 80053; 81000; 83735; 83880; 84484; 85025; 87086; 87088; 93005; 94664; 96365; 99285; J0696; J7613